=== PATIENT | female | born 1960 | race Two or more races ===

== ENCOUNTER 2021-08-04 17:45 | Emergency (ER) | payer SELFPAY ==
[~2021-08-04] VITALS: Ht 175.3 cm; Wt 104.3 kg
[2021-08-04 18:00] VITALS: BP 139/57
[2021-08-04] MEDS ORDERED: SODIUM CHLORIDE 0.9% 1,000 ML IV ONE (19:00)
== END 2021-08-04 19:31 | disposition left against medical advice (07) ==
LOC: ER 17:45 → EDBD 17:45 → ER 19:31
DX: T67.5XXA Heat exhaustion, unspecified, initial encounter (principal); R51.9 Headache, unspecified; R07.89 Other chest pain; Z53.21 Procedure and treatment not carried out due to patient leaving prior to being seen by health care provider; X58.XXXA Exposure to other specified factors, initial encounter
CPT/HCPCS: 93005; J7030